=== PATIENT | female | born 1965 | race Caucasian/White ===

== ENCOUNTER → 2023-05-20 | Emergency (ER) | payer SELFPAY ==
[2023-05-20 21:20] LABS: Absolute Lymphocytes (CBC) 3.6 K/uL (0.7-4.9); Hematocrit 41.6 % (36.0-45.0); Lymphocytes % 41.2 % (15.3-44.8); MCV 96.4 fL (80-100); MPV 8.7 fL (7.6-11.3); Platelets 371 thou/uL (152-406); RBC Red Blood Cell Count 4.32 M/uL (3.86-4.86)
[2023-05-20 21:23] LABS: Specific Gravity > 1.030 (1.005-1.030); Urine Bacteria None Seen /HPF (<20); Urine Bilirubin NEGATIVE (Negative); Urine Blood 1+ (Negative); Urine Clarity Clear (Clear); Urine Color Yellow (Yellow); Urine Glucose NEGATIVE (Negative); Urine Mucus 4+ /HPF (None Seen); Urine Protein 1+ (Negative); Urine RBC <5 /HPF (None Seen); Urine Urobilinogen Normal (Normal); Urine pH 5.5 (5.0-7.0)
[2023-05-20 21:38] LABS: Barbiturates NEGATIVE (NEGATIVE); Benzodiazepines NEGATIVE (NEGATIVE); Cocaine POSITIVE (NEGATIVE); METHAMPHETAM POSITIVE (NEGATIVE); Methadone NEGATIVE (NEGATIVE); Opiates NEGATIVE (NEGATIVE); Phencyclidine NEGATIVE (NEGATIVE); THC Cannibis POSITIVE (NEGATIVE)
--- NOTE | 2023-05-20 21:48 | RAD REPORT ---
EXAM DESCRIPTION: Rai Single View05/20/2023 9:35 pm CLINICAL HISTORY: Shortness of breath COMPARISON: 2007 FINDINGS: The lungs appear clear of acute infiltrate. The heart is normal size IMPRESSION: No acute abnormalities displayed
--- NOTE | 2023-05-20 21:51 | RAD REPORT ---
EXAM DESCRIPTION: CT - Head Brain Wo Cont - 05/20/2023 9:31 pm CLINICAL HISTORY: Alteration of awareness/confusion COMPARISON: None TECHNIQUE: Computed axial tomography of the head was obtained. IV contrast was not requested. All CT scans are performed using dose optimization technique as appropriate and may include automated exposure control or mA/KV adjustment according to patient size. FINDINGS: An intracranial bleed is not seen The ventricles are normal in caliber No extra-axial fluid collection is noted. No significant hyperdensity within the brain noted Fluid within the sinuses/ mastoids is not seen. IMPRESSION: No acute intracranial abnormality is seen If patient's symptoms persist MRI of the brain would be recommended
[2023-05-20 22:22] LABS: Albumin 4.1 g/dL (3.4-5.0); Bilirubin Total 0.9 mg/dL (0.2-1.0); Potassium 3.7 mEq/L (3.5-5.1); Protein, Total 8.2 g/dL (6.4-8.2)
--- NOTE | 2023-05-21 03:22 | EDPHYS ---
Physician Documentation [facility] Name: David Collier Age: 57 yrs Sex: Female : 1965 Arrival Date: 05/20/2023 Time: 20:34 Bed 3 Private MD: ED Physician Ricky Barton HPI: 05/20 20:50 This 57 yrs old Female presents to ER via EMS with complaints of AMS. ec2 20:50 Patient arrives today for evaluation of altered mental status. Patient was reportedly ec2 in a parking lot found to be altered and subsequently brought by EMS. EMS reports that they had found benzodiazepines in her purse with multiple tablets missing, they had also given her Narcan with minimal changes in symptoms. Patient unable to provide any significant history.. Historical: - Allergies: 20:46 No Known Allergies; ha1 - Immunization history:: Adult Immunizations unknown. - Social history:: Smoking status: unknown. ROS: 20:50 Constitutional: as per hpi ec2 Exam: 20:50 Constitutional: GEN: NAD Head: atraumatic Eyes: EOMI Ears: External ears are ec2 normal. CV: regular rate LUNGS: no respiratory distress ABD: non-distended, soft, nontender, no guarding, not rigid SKIN: no evidence of rashes MSK: no evidence of trauma NEURO: moves all extremities equally, strength equal in all 4 extremities. Altered, drowsy Vital Signs: 20:39 BP 115 / 78; Pulse 57; Resp 17 S; Temp 97.9; Pulse Ox 98% on R/A; Weight 74.84 kg; ha1 22:17 BP 117 / 76; Pulse 61; Resp 16; Pulse Ox 99% on R/A; km8 23:01 BP 100 / 72; Pulse 64; Resp 17 S; Pulse Ox 99% on R/A; ha1 23:49 BP 127 / 80; Pulse 54; Resp 17 S; Pulse Ox 100% on R/A; ha1 05/21 00:56 BP 109 / 67; Pulse 60; Resp 17 S; Pulse Ox 98% on R/A; ha1 01:45 BP 125 / 82; Pulse 52; Resp 16; Pulse Ox 100% on R/A; km8 02:45 BP 123 / 71; Pulse 55; Resp 16; Pulse Ox 100% on R/A; km8 03:45 BP 114 / 76; Pulse 49; Resp 16; Pulse Ox 100% on R/A; km8 04:15 BP 112 / 71; Pulse 48; Pulse Ox 99% on R/A; km8 04:30 BP 116 / 72; Pulse 55; Resp 17 S; Pulse Ox 98% on R/A; ha1 [place] Coma Score: 03:18 Eye Response: spontaneous(4). Motor Response: obeys commands(6). Verbal Response: km8 oriented(5). Total: 15. MDM: 05/20 20:42 Patient medically screened. ec2 20:50 Data reviewed: vital signs. ED course: Patient arrives today for evaluation of altered ec2 mental status. Examination remarkable for altered individual who is in no acute distress with reassuring vital signs. Will obtain lab work, EKG, chest x-ray, CT scan of the head to further investigate the patient's altered mental status. Given the story of multiple tablets of benzodiazepines missing from her purse, suspect possible substance abuse/ingestion, low suspicion for intracranial brain bleed, low suspicion for stroke, will evaluate for electrolyte disturbance as well.. 20:52 ED course: EKG independently reviewed and interpreted by me, shows normal sinus rhythm, ec2 rate of 52, no acute ST segment elevations, intervals are nonconcerning.. 21:44 ED course: Urine is noninfectious appearing urine drug screen is positive for ec2 methamphetamine, cocaine as well as cannabinoids. CBC is unremarkable. . 21:55 ED course: CT scan of the head shows no acute intracranial abnormality. Chest x-ray ec2 shows no acute intrathoracic process. . 22:31 ED course: Metabolic profile is reassuring, CK within normal ranges. . ec2 05/21 00:15 ED course: Patient remains pretty drowsy, pending metabolism of her substances.. ec2 03:21 ED course: On reassessment patient is awake and alert and answering questions ec2 appropriately. Will discharged home in the care of the loved 1 and have her follow-up as needed, instructed her to stop using drugs.. 05/20 20:50 Order name: CBC with Diff; Complete Time: 21:44 ec2 05/20 20:50 Order name: CMP; Complete Time: : ec2 05/20 20:50 Order name: UAM; Complete Time: 21:44 ec2 05/20 20:50 Order name: UDS; Complete Time: 21:44 ec2 05/20 20:50 Order name: Ethanol; Complete Time: 22:39 ec2 05/20 20:50 Order name: CK; Complete Time: 22:31 ec2 05/20 20:50 Order name: CT Head Brain wo Cont; Complete Time: 21:55 ec2 05/20 20:50 Order name: CXR XRAY; Complete Time: 21:55 ec2 05/20 20:50 Order name: EKG; Complete Time: 20:50 ec2 05/20 20:50 Order name: EKG - Nurse/Tech; Complete Time: 20:57 ec2 Administered Medications: No medications were administered Disposition Summary: 05/21/23 03:21 Discharge Ordered Notes: You should stop doing drugs. Location: Home ec2 Condition: Stable ec2 Diagnosis - Other psychoactive substance abuse ec2 - Adverse effect of amphetamines ec2 - Adverse effect of cocaine, initial encounter ec2 Followup: ec2 - With: Private Physician - When: - Reason: Re-evaluation by your physician Discharge Instructions: - Discharge Summary Sheet ec2 - Substance Use Disorder ec2 Forms: - Medication Reconciliation Form ec2 - Thank You Letter ec2 - Antibiotic Education ec2 - Prescription Opioid Use ec2 - Patient Portal Instructions ec2 - Leadership Thank You Letter ec2 Signatures: Dispatcher [employer] Michelle Edwards RN RN ha1 Ricky Barton MD MD ec2
--- NOTE | 2023-05-21 03:22 | ER ---
Nurse's Notes [facility] Name: David Collier Age: 57 yrs Sex: Female : 1965 Arrival Date: 05/20/2023 Time: 20:34 Bed 3 Private MD: Diagnosis: Other psychoactive substance abuse;Adverse effect of amphetamines;Adverse effect of cocaine, initial encounter Presentation: 05/20 20:39 Chief complaint: EMS states: 57 year old female was found at a parking lot by police ha1 officers. Alter mental status, drowsy. Police officers found a bottle pills of lorazepam under her possession. 2 mg IM of Narcan were given no changes noticed after giving Narcan . Coronavirus screen: Vaccine status:. Ebola Screen: No symptoms or risks identified at this time. Initial Sepsis Screen: Does the patient meet any 2 criteria? No. Patient's initial sepsis screen is negative. Does the patient have a suspected source of infection? No. Patient's initial sepsis screen is negative. Risk Assessment: Do you want to hurt yourself or someone else? Patient reports no desire to harm self or others. Onset of symptoms was May 20, 2023. 20:39 Method Of Arrival: EMS: [facility] ha1 20:39 Acuity: ROSETTA 3 ha1 Triage Assessment: 20:46 General: Appears uncomfortable, unkempt, Behavior is anxious, drowsy. Pain: Denies ha1 pain. Neuro: Level of Consciousness is awake, lethargic, Oriented to person. Cardiovascular: Patient's skin is warm and dry. Respiratory: Airway is patent Respiratory effort is even, unlabored, Respiratory pattern is regular, symmetrical. GI: No signs and/or symptoms were reported involving the gastrointestinal system. : No signs and/or symptoms were reported regarding the genitourinary system. Musculoskeletal: Circulation, motion, and sensation intact. Range of motion: intact in all extremities. Historical: - Allergies: 20:46 No Known Allergies; ha1 - Immunization history:: Adult Immunizations unknown. - Social history:: Smoking status: unknown. Screenin:58 Nutritional screening: No deficits noted. Tuberculosis screening: No symptoms or risk ha1 factors identified. 05/21 03:18 [facility] ED Fall Risk Assessment (Adult) History of falling in the last 3 months, km8 including since admission Yes- physiologic fall (2 pts) Confusion or Disorientation Yes (5 pts) Intoxicated or Sedated Yes (3 pts) Impaired Gait No (0 pts) Mobility Assist Device Used No (0 pt) Altered Elimination No (0 pt) Score/Fall Risk Level 3 or more points = High Risk Oriented to surroundings, Maintained a safe environment, Educated pt \T\ family on fall prevention, incl call for assistance when getting out of bed, Assessed \T\ reinforced patient's understanding of fall precautions, Provided non-skid footwear, Implemented a Fall Risk Plan of Care, Remained w/in arm's length of patient and in sight while toileting, Remained with patient while ambulating. Abuse screen: Denies threats or abuse. Denies injuries from another. Assessment: 05/20 20:48 Reassessment: see triage assessment. ha1 21:11 Reassessment: going to CT. ha1 22:17 Reassessment: Patient appears in no apparent distress at this time. No changes from km8 previously documented assessment. pt sleeping at this time. 23:01 Reassessment: Patient and/or family updated on plan of care and expected duration. Pain ha1 level reassessed. 23:49 Reassessment: Patient and/or family updated on plan of care and expected duration. Pain ha1 level reassessed. 05/21 00:55 Reassessment: eyes closed. Respiratory: Airway is patent Respiratory effort is even, ha1 unlabored, Respiratory pattern is regular, symmetrical. 02:00 Reassessment: Patient appears in no apparent distress at this time. No changes from km8 previously documented assessment. 03:00 Reassessment: Patient appears in no apparent distress at this time. No changes from km8 previously documented assessment. 03:17 General: Appears in no apparent distress. comfortable, Behavior is cooperative, km8 appropriate for age, restless, pt woke up asking where she was and how she got here; pt denied taking any drugs recently; Dr. Barton at bedside speaking with pt; pt is to find a ride home and will be released once her ride arrives.. Pain: Denies pain. Neuro: [place] Agitation-Sedation Scale (RASS): +1 Restless Level of Consciousness is awake, alert, obeys commands, Oriented to person, place, Appropriate for age reoriented. Cardiovascular: Denies chest pain, shortness of breath. Respiratory: Airway is patent Respiratory effort is even, unlabored, Respiratory pattern is regular, symmetrical. 04:00 Reassessment: Patient and/or family updated on plan of care and expected duration. Pain ha1 level reassessed. Patient is alert, oriented x 3, equal unlabored respirations, skin warm/dry/pink. PATIENT AWAITING ON TRANSPORTATION. 05:02 Reassessment: Patient and/or family updated on plan of care and expected duration. Pain ha1 level reassessed. Patient is alert, oriented x 3, equal unlabored respirations, skin warm/dry/pink. Vital Signs: 05/20 20:39 BP 115 / 78; Pulse 57; Resp 17 S; Temp 97.9; Pulse Ox 98% on R/A; Weight 74.84 kg; ha1 22:17 BP 117 / 76; Pulse 61; Resp 16; Pulse Ox 99% on R/A; km8 23:01 BP 100 / 72; Pulse 64; Resp 17 S; Pulse Ox 99% on R/A; ha1 23:49 BP 127 / 80; Pulse 54; Resp 17 S; Pulse Ox 100% on R/A; ha1 05/21 00:56 BP 109 / 67; Pulse 60; Resp 17 S; Pulse Ox 98% on R/A; ha1 01:45 BP 125 / 82; Pulse 52; Resp 16; Pulse Ox 100% on R/A; km8 02:45 BP 123 / 71; Pulse 55; Resp 16; Pulse Ox 100% on R/A; km8 03:45 BP 114 / 76; Pulse 49; Resp 16; Pulse Ox 100% on R/A; km8 04:15 BP 112 / 71; Pulse 48; Pulse Ox 99% on R/A; km8 04:30 BP 116 / 72; Pulse 55; Resp 17 S; Pulse Ox 98% on R/A; ha1 [place] Coma Score: 03:18 Eye Response: spontaneous(4). Motor Response: obeys commands(6). Verbal Response: km8 oriented(5). Total: 15. ED Course: 05/20 20:39 Patient arrived in ED. ha1 20:39 Arm band placed on right wrist. ha1 20:39 Patient has correct armband on for positive identification. Placed in gown. Bed in low ha1 position. Call light in reach. Side rails up X2. 20:42 Ricky Barton MD is Attending Physician. ec2 20:46 Triage completed. ha1 21:32 CT Head Brain wo Cont In Process Unspecified. EDMS 21:36 CXR XRAY In Process Unspecified. EDMS 21:56 Ethanol Sent. km8 21:56 CK Sent. km8 05/21 03:18 Warm blanket given. Pillow given. km8 05:02 Provided Education on: d/c teaching. km8 05:04 No provider procedures requiring assistance completed. IV discontinued, intact, km8 bleeding controlled, No redness/swelling at site. Pressure dressing applied. 05:04 No provider procedures requiring assistance completed. ha1 Administered Medications: No medications were administered Medication: 05/20 21:00 VIS not applicable for this client. ha1 Outcome: 05/21 03:21 Discharge ordered by . ec2 05:04 Discharged to home via wheelchair, with friend, km8 05:04 Condition: good 05:04 Discharge instructions given to patient, Instructed on discharge instructions, follow up and referral plans. Demonstrated understanding of instructions, follow-up care, 05:04 Patient left the ED. km8 Signatures: Dispatcher [employer] Michelle Edwards RN RN ha1 Ricky Barton MD MD ec2 Nicolasa Frederick RN RN km8 Corrections: (The following items were deleted from the chart) 03:19 03:17 General: Appears in no apparent distress. comfortable, Behavior is cooperative, km8 appropriate for age, restless, km8 05:03 04:00 Reassessment: Patient and/or family updated on plan of care and expected ha1 duration. Pain level reassessed. Patient is alert, oriented x 3, equal unlabored respirations, skin warm/dry/pink. ha1
[2023-05-21 06:34] VITALS: TEMP 97.9; O2SAT 98
[2023-05-21 06:45] VITALS: BP 116/72
== END ==
LOC: ER 20:34
DX: R41.82 Altered mental status, unspecified (principal); F19.10 Other psychoactive substance abuse, uncomplicated; T40.5X5A Adverse effect of cocaine, initial encounter
CPT/HCPCS: 36415; 70450; 71045; 80053; 80307; 81001; 82077; 82550; 85025; 93005; 99284